=== PATIENT | female | born 1975 | race Two or more races ===

== ENCOUNTER 2016-09-26 19:22 | Emergency (ER) | payer OTHER ==
[2016-09-26 19:42] VITALS: BP 101/78
--- NOTE | 2016-09-26 20:24 | EDM.PDOC ---
ED HPI GENERAL MEDICAL PROBLEM - General Chief Complaint: Lower Extremity Injury/Pain Stated Complaint: FALL AT WORK Time Seen by Provider: 09/26/16 20:10 Source of Information: Reports: Patient History Limitations: Reports: No Limitations - History of Present Illness INITIAL COMMENTS - FREE TEXT/NARRATIVE: The patient is a 41-year-old female who presents to the ED complaining of lateral right foot pain and left lateral knee pain knee. Patient states at approximately 3:00 this afternoon she tripped while walking in the parking lot of employment. Patient developed mild swelling to the knee and foot. She does have a limp with walking secondary to pain. She has not taken any medications or placed ice to the affected area. She attempted to be seen at the walk in clinic and was refused twice. She presents for further evaluation. Patient denies LOC, neck/back pain, n/t, or any additional complaints. 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 Denies: Numbness, Tingling ED EXAM, GENERAL - Physical Exam Exam: See Below Exam Limited By: No Limitations General Appearance: Alert, WD/WN, No Apparent Distress Ears: Hearing Grossly Normal Nose: Normal Inspection Throat/Mouth: Normal Voice, No Airway Compromise Neck: Normal Inspection, Supple, Non-Tender, Full Range of Motion Respiratory/Chest: No Respiratory Distress, Lungs Clear, Normal Breath Sounds, No Accessory Muscle Use, Chest Non-Tender Cardiovascular: Normal Peripheral Pulses, Regular Rate, Rhythm, No Murmur Peripheral Pulses: 2+: Radial (L) Back Exam: Normal Inspection Extremities: Other (right foot: mild swelling to the lateral aspect of the foot with bruising noted. Pain with palpation. No sensory/motor deficits. No pain to the medial/lateral malleolus, tib/fib, knee, upper leg. Left leg: Mild swelling to the lateral aspect of the left knee. No bony abnormalities noted. No pain with palpation to the femur, tip/fib, ankle, foot. No decreased range of motion noted.) Neurological: Alert, Oriented, Normal Cognition, No Motor/Sensory Deficits Psychiatric: Normal Affect, Normal Mood Skin Exam: Warm, Dry, Intact Course - Vital Signs Last Recorded V/S: Last Vital Signs Temp 97.8 F 09/26/16 19:36 Pulse 73 09/26/16 19:36 Resp 18 09/26/16 19:36 BP 101/78 09/26/16 19:36 Pulse Ox 99 09/26/16 19:36 - Orders/Labs/Meds Orders: Active Orders 24 hr Category Date Time Status Foot Comp Min 3V Rt [CR] Stat Exams 09/26/16 20:18 Taken DME for Discharge [COMM] Stat Oth 09/26/16 21:08 Ordered - Re-Assessments/Exams Free Text/Narrative Re-Assessment/Exam: Patient has a small contusion to the left lateral knee. Minimal pain with palpation. No decreased range of motion noted.no bony abnormalities noted. No x- ray will be obtained. Will order x-ray of the right foot with noticeable increased swelling, bruising, increased pain with palpation and also flexion extension of her toes. 09/26/16 21:05x-ray the right foot do not reveal any acute bony abnormalities. Sauce tissue swelling noted. Final interpretation is pending. Patient has been ambulatory since the fall. Suggesting this is most likely foot sprain. Will have Josr wrap applied to the affected foot. She'll be discharged home with instructions as documented. Departure - Departure Time of Disposition: 21:08 Disposition: Home, Self-Care 01 Condition: good Clinical Impression: Sprain of foot, right Qualifiers: Encounter type: initial encounter Qualified Code(s): S93.601A - Unspecified sprain of right foot, initial encounter Contusion of knee, left Qualifiers: Encounter type: initial encounter Qualified Code(s): S80.02XA - Contusion of left knee, initial encounter - Discharge Information Instructions: Foot Sprain Referrals: PCP,None [Primary Care Provider] - Forms: ED Department Discharge, Return to Work/School Form Additional Instructions: Elevate the affected foot when able to reduce pain and swelling. Apply ice to the knee and foot 4-6 times daily, 20 minutes in duration, do not place ice directly on the skin. Take Tylenol and ibuprofen in alternating fashion for pain. Refrain from any activities that cause worsening pain. Wear Josr wrap to the right foot for the next 5 days until swelling subsides.Followup with a provider at occupational medicine for modification of job duties if required. Return to ED as needed for any new or worsening symptoms. - My Orders Last 24 Hours: My Active Orders 09/26/16 20:18 Foot Comp Min 3V Rt [CR] Stat 09/26/16 21:08 DME for Discharge [COMM] Stat - Assessment/Plan Last 24 Hours: My Active Orders 09/26/16 20:18 Foot Comp Min 3V Rt [CR] Stat 09/26/16 21:08 DME for Discharge [COMM] Stat
--- NOTE | 2016-09-30 09:38 | CR ---
Right foot: Four views of the right foot were obtained. Comparison: No previous study. No discrete fracture or other bony abnormality is seen. Impression: 1. No abnormality is identified on right foot study. Diagnostic code #1
== END 2016-09-26 21:25 | disposition home or self-care (01) ==
LOC: JD.ED 19:22
DX: S93.601A Unspecified sprain of right foot, initial encounter (principal); S80.02XA Contusion of left knee, initial encounter; Z90.49 Acquired absence of other specified parts of digestive tract; Z90.710 Acquired absence of both cervix and uterus; W01.0XXA Fall on same level from slipping, tripping and stumbling without subsequent striking against object, initial encounter; Y92.481 Parking lot as the place of occurrence of the external cause; Y99.0 Civilian activity done for income or pay
CPT/HCPCS: 73630-26-RT; 73630-RT; 99282; 99283

== ENCOUNTER 2020-09-21 10:52 | Emergency (ER) | payer BC ==
[2020-09-21] MEDS ORDERED: Famotidine 20 MG/2 ML SDV IVPUSH ONE (11:09)
[2020-09-21] MEDS ORDERED: methylPREDNISolone Sodium Succinate 125 MG/2 ML SDV IVPUSH ONE (11:09)
[2020-09-21] MEDS ORDERED: Sodium Chloride 0.9% 1,000 ML IV ONE (11:09)
[2020-09-21] MEDS ORDERED: Sodium Chloride 0.9% 10 ML Syringe FLUSH PRN (11:09)
[2020-09-21] MEDS ORDERED: diphenhydrAMINE 50 MG/ML SDV IVPUSH ONE (11:09)
--- NOTE | 2020-09-21 11:36 | EDM.PDOC ---
ED HPI GENERAL MEDICAL PROBLEM - General Chief Complaint: General Stated Complaint: MEDICATION PROBLEM/ALLERGY Time Seen by Provider: 09/21/20 11:09 Source of Information: Reports: Patient, RN Notes Reviewed History Limitations: Reports: No Limitations - History of Present Illness INITIAL COMMENTS - FREE TEXT/NARRATIVE: Patient is a 45-year-old female who presents to the ER for an allergic reaction. She was at the [facility] for allergy shots, and apparently she received 4 shots that were too concentrated. She was waiting in the time to be released from the clinic, and she states that she had a funny feeling in her throat, and used her albuterol inhaler, and took over to Gina pills at that time. 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 Patient was seen to be flushed, and felt short of breath. Also states that her arm where she got the injections does hurt quite a bit, and she has kind of a diffuse headache. She does have a history of diabetes and asthma. She received these injections at around 9:30 AM. - Related Data Allergies Allergy/AdvReac Type Severity Reaction Status Date / Time No Known Allergies Allergy Verified 09/26/16 19:36 Home Meds: Home Meds Aspirin [Aspirin EC] 81 mg PO DAILY 09/21/20 [History] Empagliflozin/Metformin HCl [Synjardy 12.5-500 mg Tablet] 2 tab PO DAILY 09/21/20 [History] Losartan Potassium 50 mg PO DAILY 09/21/20 [History] Rosuvastatin [Crestor] 5 mg PO DAILY 09/21/20 [History] Semaglutide [Ozempic] 0.5 mg IM AGUIRRE 09/21/20 [History] methylPREDNISolone [Medrol Dose Pack] 4 mg PO ASDIRECTED #1 dospk 09/21/20 [Rx] Past Medical History Respiratory History: Reports: Other (See Below) Other Respiratory History: seasonal and environmental allergies; gets allergy shots Gastrointestinal History: Reports: Cholelithiasis 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 ED EXAM, GENERAL - Physical Exam Exam: See Below Exam Limited By: No Limitations General Appearance: Alert, WD/WN, No Apparent Distress Respiratory/Chest: No Respiratory Distress, No Accessory Muscle Use, Chest Non- Tender, Wheezing (very minimal end expiratory wheezing to Left lung field; pt has good air exchange otherwise.) Cardiovascular: Normal Peripheral Pulses, Regular Rate, Rhythm, No Edema Peripheral Pulses: 2+: Radial (L), Radial (R) Extremities: Normal Inspection, Normal Capillary Refill Neurological: Alert, Oriented, Normal Cognition, No Motor/Sensory Deficits Psychiatric: Normal Affect, Normal Mood, Anxious (slight generalized) Skin Exam: Warm, Dry, Intact, Normal Color, No Rash Course - Vital Signs Last Recorded V/S: Last Vital Signs Temp 98.6 F 09/21/20 11:00 Pulse 87 09/21/20 11:00 Resp 20 09/21/20 11:00 BP 130/85 09/21/20 11:00 Pulse Ox 95 09/21/20 11:00 - Orders/Labs/Meds Orders: Active Orders 24 hr Category Date Time Status Peripheral IV Care [RC] . DIRECTED Care 09/21/20 11:09 Active Sodium Chloride 0.9% [Saline Flush] Med 09/21/20 11:09 Active 10 ml FLUSH ASDIRECTED PRN Peripheral IV Insertion Adult [OM.PC] Stat Oth 09/21/20 11:09 Ordered Medication Orders Sodium Chloride (Sodium Chloride 0.9% 10 Ml Syringe) 10 ml FLUSH ASDIRECTED PRN PRN Reason: Keep Vein Open Last Admin: 09/21/20 11:49 Dose: 10 ml Documented by: JR Meds: Medications Generic Name Dose Route Start Last Admin Trade Name Freq PRN Reason Stop Dose Admin Sodium Chloride 10 ml 09/21/20 11:09 09/21/20 11:49 Sodium Chloride 0.9% 10 Ml Syringe FLUSH 10 ml ASDIRECTED PRN Administration Keep Vein Open Discontinued Medications Generic Name Dose Route Start Last Admin Trade Name Freq PRN Reason Stop Dose Admin Diphenhydramine HCl 50 mg 09/21/20 11:09 09/21/20 11:42 Diphenhydramine 50 Mg/Ml Sdv IVPUSH 09/21/20 11:10 50 mg ONETIME ONE Administration Famotidine 20 mg 09/21/20 11:09 09/21/20 11:42 Famotidine 20 Mg/2 Ml Sdv IVPUSH 09/21/20 11:10 20 mg ONETIME ONE Administration Sodium Chloride 1,000 mls @ 500 mls/hr 09/21/20 11:09 09/21/20 11:42 Normal Saline IV 09/21/20 13:08 500 mls/hr ONETIME ONE Administration Methylprednisolone Sodium Succinate 125 mg 09/21/20 11:09 09/21/20 11:42 Methylprednisolone Sodium Succinate 125 Mg/2 Ml Sdv IVPUSH 09/21/20 11:10 125 mg ONETIME ONE Administration - Re-Assessments/Exams Free Text/Narrative Re-Assessment/Exam: 09/21/20 11:36 Patient presents to the ER for the evaluation of her allergic reaction, we will get IV started give her some medication to see if this helps make her feel better. She will be re-assessed once the medication has been given time to work. Departure - Departure Time of Disposition: 12:34 Disposition: Home, Self-Care 01 Condition: Good Clinical Impression: Allergic reaction to allergy skin test - Discharge Information *PRESCRIPTION DRUG MONITORING PROGRAM REVIEWED*: No *COPY OF PRESCRIPTION DRUG MONITORING REPORT IN PATIENT TASHA: No Prescriptions: methylPREDNISolone [Medrol Dose Pack] 4 mg PO ASDIRECTED #1 dospk Instructions: Allergies, Adult, Ewup-[id number]-Wloe Referrals: PCP,None [Ordering Only Provider] - Forms: ED Department Discharge, ED Return to Work/School Form Additional Instructions: You were evaluated in the ER today for your allergic reaction to your allergy shots. You were given some IV fluids, medications in the ER, that seem to help relieve most your symptoms. You have been placed on oral steroids for outpatient management, please take as directed on the box. This medication was electronically sent to the [place] pharmacy located in the [facility] grocery store. Please keep a watchful eye on your blood sugars as steroids can make blood sugars high while you are using them. You may also use 12-1/2 to 25 mg of Benadryl every 4 hours as needed for ongoing allergic/itching symptoms. You can use [id number] Pepcid as well, this is a histamine scott, and is nondrowsy. Do not hesitate to return to the ER if your symptoms seem to change or worsen. Sepsis Event Note (ED) - Evaluation Sepsis Screening Result: No Definite Risk - Focused Exam Vital Signs: Vital Signs Temp Pulse Resp BP Pulse Ox 09/21/20 11:00 98.6 F 87 20 130/85 95 - My Orders Last 24 Hours: My Active Orders 09/21/20 11:09 Peripheral IV Care [RC] . DIRECTED Sodium Chloride 0.9% [Saline Flush] 10 ml FLUSH ASDIRECTED PRN Peripheral IV Insertion Adult [OM.PC] Stat - Assessment/Plan Last 24 Hours: My Active Orders 09/21/20 11:09 Peripheral IV Care [RC] . DIRECTED Sodium Chloride 0.9% [Saline Flush] 10 ml FLUSH ASDIRECTED PRN Peripheral IV Insertion Adult [OM.PC] Stat
[2020-09-21 14:34] VITALS: BP 105/84; PULSE 73
== END 2020-09-21 13:37 | disposition home or self-care (01) ==
LOC: SUPCPDRO 10:52 → JD.ED 10:52
DX: T78.40XA Allergy, unspecified, initial encounter (principal)
CPT/HCPCS: 96374; 96375; 99284; J1200; J2930; J3490; J7030; 99283